=== PATIENT | female | born 1985 | race Caucasian/White ===

== ENCOUNTER 2021-04-10 06:39 | Day surgery (SDC) | payer OTHER ==
[2021-04-09 12:52] LABS: COVID AG,FIA SOURCE NASOPHARYNGEAL
[~2021-04-10] VITALS: Ht 165.1 cm; Wt 57.2 kg
[~2021-04-10 06:39] MED LIST: ALBU8HFA IH; ALBUTEROL 2.5 MG/3 ML IH; CETI-450 PO; FLUT16H NASAL; FLUT1BLS13 IH; MONT-35 PO; PRED10 PO; SODIUM CHLORIDE 0.9% 1,000 ML IV ONE; SODIUM CHLORIDE 0.9% 1,000 ML ONE; SUMA25TA9 PO
[2021-04-10] MEDS ORDERED: ALBUTEROL SULFATE 2.5 MG/0.5 ML NEB SOLUTION NEB ONE (06:40)
[2021-04-10] MEDS ORDERED: LIDOCAINE 2% 30 ML JELLY TP ONE (06:40)
[2021-04-10] MEDS ORDERED: BENZOCAINE 20% 50 MCG/SPRAY 57 GM TP ONE (06:40)
[2021-04-10] MEDS ORDERED: MethylPREDNISolone SOD SUCC 125 MG/2 ML VIAL IVP ONE (09:00)
[2021-04-10] MEDS ORDERED: MethylPREDNISolone SOD SUCC 125 MG/2 ML VIAL ONE (09:28)
[2021-04-10] MEDS ORDERED: MIDAZOLAM HCL 5 MG/ML VIAL ONE (10:07)
[2021-04-10] MEDS ORDERED: FentaNYL CITRATE PF 100 MCG/2 ML VIAL ONE (10:07)
[2021-04-10] MEDS ORDERED: OXYGEN THERAPY IH SCH (20:00)
== END 2021-04-10 11:30 | disposition home or self-care (01) ==
LOC: SURGERY 06:39
PROVIDERS: ATTEND Internal Medicine Critical Care Medicine
DX: J38.4 Edema of larynx (principal); B37.0 Candidal stomatitis; Z87.891 Personal history of nicotine dependence; Z72.89 Other problems related to lifestyle; Z79.899 Other long term (current) drug therapy; Z98.890 Other specified postprocedural states
CPT/HCPCS: 31623; 31624; 71045; 84703; 87015; 87070; 87101; 87205; 87206; 87220; 87426; 88112; 88184; 88185; 88312; C9803; J2250; J2930; J3010; J7030; J7613